=== PATIENT | male | born 1965 | race Caucasian/White ===

== ENCOUNTER → 2019-09-29 | Outpatient (CLI) | payer BC ==
[~2019-09-29] MED LIST: CEPHALEXIN500 M1; CEPHALEXIN500 M1 PO; COLACE 100100 MG/CAP PO; FLOMAX 0.40.4 MG/CAP PO; HCTZ 25MG TAB25 MG PO; NO HOME MEDICATIONS; NORCO 325 MG-51 TAB PO; PERCOCET 325 MG1 TA2 PO
== END ==
LOC: COL.RAD 13:22
DX: M51.36 Other intervertebral disc degeneration, lumbar region (principal); M51.27 Other intervertebral disc displacement, lumbosacral region; M48.061 Spinal stenosis, lumbar region without neurogenic claudication; M96.1 Postlaminectomy syndrome, not elsewhere classified; M47.816 Spondylosis without myelopathy or radiculopathy, lumbar region; M71.38 Other bursal cyst, other site

== ENCOUNTER → 2019-10-28 | Outpatient (CLI) | payer BC | LOC: ZCOL.LAB 15:51 | DX: U07.1 COVID-19 (principal) ==

== ENCOUNTER → 2020-08-30 | Outpatient (CLI) | payer BC ==
[~2020-08-30] MED LIST changes: +COZAAR 25MG25 MG/TAB PO; +DITROPAN 5MG TAB5 MG PO; +FLEXERIL 1010 MG/TAB PO; +PROAIR HFA0.09 MG/AC IH; +PULMICORT90 MCG/Act IH
== END ==
LOC: COL.PUL 07:51
DX: R06.09 Other forms of dyspnea (principal)

== ENCOUNTER 2020-11-05 06:06 | Day surgery (SDC) | payer BC ==
[2005-03-08 16:08] VITALS: BP 159/98
[~2020-11-05] VITALS: Ht 188 cm; Wt 193.0 kg
[~2020-11-05 06:06] MED LIST changes: -COZAAR 25MG25 MG/TAB PO; -DITROPAN 5MG TAB5 MG PO; -FLEXERIL 1010 MG/TAB PO; -PROAIR HFA0.09 MG/AC IH; -PULMICORT90 MCG/Act IH
[2020-11-05] MEDS ORDERED: FLOMAX 0.40.4 MG/CAP PO (06:29)
[2020-11-05] MEDS ORDERED: COZAAR 25MG25 MG/TAB PO (06:29)
[2020-11-05] MEDS ORDERED: DITROPAN 5MG TAB5 MG PO (06:30)
[2020-11-05] MEDS ORDERED: PULMICORT90 MCG/Act IH (06:31)
[2020-11-05] MEDS ORDERED: PROAIR HFA0.09 MG/AC IH (06:31)
[2020-11-05 07:01] VITALS: BP 117/74; PULSE 88; TEMP 98.2
[2020-11-05 07:45] VITALS: BP 96/52; PULSE 89; TEMP 98.9
[2020-11-05 08:00] VITALS: BP 103/69; PULSE 76
--- NOTE | 2020-11-05 08:09 | NUR ---
PT RETURNED FROM ENDO PROCEDURE ROOM INTO BAY#1. PT ALERT AND ORIENTATED, STATES, 'FEELING DRUNK'. DENIES PAIN OR NAUSEA AT THIS TIME. IV PATENT WTIH FLUIDS FLOWING PATENT. LUNGS CLEAR AND DIMINISHED, HRR, BOWEL SOUNDS HYPOATIVE. PT REQUESTS GIANNA VEGA. TALKING WITH PATIENT IN ROOM. WILL CONT TO MONITOR PROGRESS.
--- NOTE | 2020-11-05 08:13 | NUR ---
PT TOLERATING FOOD AND FLUIDS WITHOUT NAUSEA OR VOMITING. DOES STATE SOME DISCOMFORT IN THE RECTUM. INFORMED PATINET THAT HE WOULD SEE ALITTLE BLOOD AND HAVE DISCOMFORT R/T HEMORRHOIDS SEEN DURING PROCEDURE. WILL MONITOR.
[2020-11-05 08:15] VITALS: BP 105/69; PULSE 79
--- NOTE | 2020-11-05 08:23 | NUR ---
PT IS ALERT AND ORIENTATED. DISCHARGE INSTRUCTIONS GIVEN, PT VOICES UNDERSTANDING. IV DC'D TO RIGHT AC. PT TAKEN OUT OF FACITLITY PER WC INTO FAMILY VEHICLE. DRIVING.
== END 2020-11-05 08:00 | disposition home or self-care (01) ==
LOC: SDCO 06:06
DX: Z12.11 Encounter for screening for malignant neoplasm of colon (principal); K64.1 Second degree hemorrhoids; K21.9 Gastro-esophageal reflux disease without esophagitis; I10 Essential (primary) hypertension; J45.909 Unspecified asthma, uncomplicated; G47.33 Obstructive sleep apnea (adult) (pediatric); G62.9 Polyneuropathy, unspecified; G47.30 Sleep apnea, unspecified; M54.30 Sciatica, unspecified side; E66.01 Morbid (severe) obesity due to excess calories; Z79.899 Other long term (current) drug therapy; Z99.89 Dependence on other enabling machines and devices; Z68.43 Body mass index [BMI] 50.0-59.9, adult; Z90.89 Acquired absence of other organs; Z80.0 Family history of malignant neoplasm of digestive organs
CPT/HCPCS: J2704; J7030

== ENCOUNTER → 2020-12-17 | Outpatient (CLI) | payer BC ==
[~2020-12-17] MED LIST changes: +COZAAR 25MG25 MG/TAB PO; +DITROPAN 5MG TAB5 MG PO; +FLEXERIL 1010 MG/TAB PO; +PROAIR HFA0.09 MG/AC IH; +PULMICORT90 MCG/Act IH
== END ==
LOC: ZCOL.LAB 19:05
DX: N39.0 Urinary tract infection, site not specified (principal)

== ENCOUNTER 2021-02-03 16:39 | Emergency (ER) | payer BC ==
[~2021-02-03] VITALS: Ht 188 cm; Wt 190.9 kg
[~2021-02-03 16:39] MED LIST changes: -FLEXERIL 1010 MG/TAB PO
[2021-02-03] MEDS ORDERED: FLEXERIL 1010 MG/TAB PO (19:43)
[2021-02-03 19:58] VITALS: BP 136/87; PULSE 98; TEMP 98.1
== END 2021-02-03 19:58 | disposition home or self-care (01) ==
LOC: COL.ER 16:39
DX: M54.42 Lumbago with sciatica, left side (principal); E66.01 Morbid (severe) obesity due to excess calories; I10 Essential (primary) hypertension; Z98.890 Other specified postprocedural states; Z68.43 Body mass index [BMI] 50.0-59.9, adult; X50.0XXA Overexertion from strenuous movement or load, initial encounter
CPT/HCPCS: J1885; J2270; J2360